=== PATIENT | female | born 1935 | race Caucasian/White ===

== ENCOUNTER 2016-11-26 08:25 | Outpatient (CLI) | payer MEDICARE ==
[2016-11-26 12:29] LABS: #Basophils 0.1 thou/uL (0.0-0.2); #Lymphocytes 2.2 thou/uL (1.20-3.40); #Monocytes 0.3 thou/uL (0.11-0.59); #Neutrophils 2.2 thou/uL (1.40-6.50); %Basophils 1.4 % (0.0-1.0); %Eosinophils 0.8 % (0.0-10.0); %Lymphocytes 46.4 % (21.0-51.0); %Monocytes 6.5 % (0.0-10.0); Hemoglobin 13.2 g/dL (12.0-16.0); Mean Corpuscular HGB CONC 32.3 g/dL (32.0-36.0); Mean Corpuscular Hemoglobin 29.8 pg (27.0-31.0); Mean Corpuscular Volume 92.2 fl (81.0-99.0); Mean Platelet Volume 7.4 fL (7.4-10.4); Platelet Count 194 thou/uL (130-400); RBC Distribution Width 11.4 % (11.5-14.5); Red Blood Cell (RBC) Count 4.43 mill/uL (4.20-5.40); White Blood Cell (WBC) Count 4.8 thou/uL (4.8-10.8)
[2016-11-26 13:01] LABS: ALT (SGPT) 16 U/L (8-55); AST (SGOT) 18 U/L (5-34); Albumin 4.4 g/dL (3.4-4.8); Alkaline Phosphatase 72 U/L (40-150); Anion Gap 16 mmol/L (10-20); BUN (Urea Nitrogen) 18 mg/dL (9.8-20.1); Bilirubin, Direct 0.1 mg/dL (0.1-0.3); Bilirubin, Total 0.3 mg/dL (0.2-1.2); Calc. Creatinine Clearance 0 mL/min (70-130); Calcium 9.8 mg/dL (7.8-10.44); Carbon Dioxide 24 mmol/L (23-31); Cardiac Risk 3.3 (Less than 4.5); Chloride 104 mmol/L (98-107); Cholesterol 223 mg/dl (< 200 Desired); Estimated GFR-MDRD 68; Glucose 81 mg/dL (83-110); HDL Cholesterol 68 mg/dL (>60 Neg Risk); LDL Cholesterol, Calculated 134 mg/dL; Protein, Total 7.4 g/dL (6.0-8.3); Sodium 139 mmol/L (136-145); Triglycerides 104 mg/dL (Less than 150)
[2016-11-26 13:20] LABS: Hemoglobin A1c 5.7 % (4.0-6.0)
== END 2016-11-26 08:26 | disposition home or self-care (01) ==
LOC: NAVSJIPCSP 08:25
PROVIDERS: ATTEND Family Medicine
DX: E78.00 Pure hypercholesterolemia, unspecified (principal); E55.9 Vitamin D deficiency, unspecified; G62.9 Polyneuropathy, unspecified; I10 Essential (primary) hypertension; R51 Headache
CPT/HCPCS: 36415; 80048; 80061; 80076; 83036; 84443; 85025

== ENCOUNTER 2018-06-04 14:44 | Outpatient (CLI) | payer MEDICARE ==
--- NOTE | 2018-06-04 15:48 | CT ---
CT CERVICAL SPINE WITHOUT CONTRAST: Multiple axial tomograms are obtained through the cervical spine without IV enhancement. INDICATION: Neck pain. Cervical radiculopathy. FINDINGS: Degenerative changes of the cervical spine. The cervical vertebral maintain height. There are degen erative disk changes throughout, most prominent at C4-5, C5-6 and C67 where there is loss of disk spa ce with posterior spondylosis and anterior osteophytes. There is anterolisthesis at C3-4 measured at approximately 3 mm. At C2-3, no significant disk bulge or spondylosis. At C3-4, anterolisthesis as noted above. Posterior disk bulge and spondylosis efface the anterior pickard barachnoid space. Mild left foraminal narrowing due to facet and uncinate hypertrophy. At C4-5, posterior disk bulge and spondylosis efface the anterior subarachnoid space and appear to ab ut the spinal cord. There is left foraminal encroachment due to uncinate hypertrophy. At C5-6, posterior disk bugle and spondylosis efface the anterior subarachnoid space and impinge on a mildly flattened cord. Left foraminal narrowing due to facet and uncinate hypertrophy. At C6-7, posterior disk bulge with spondylosis efface the anterior subarachnoid space and abut the co rd. Mild left foraminal encroachment due to uncinate hypertrophy. IMPRESSION: Degenerative disk changes throughout the cervical spine most prominent at C3-4, C4-5, C5-6, and C6-7 with findings described above. POS: [facility]
== END 2018-06-04 14:45 | disposition home or self-care (01) ==
LOC: NAV CT 14:44
PROVIDERS: ATTEND Neurological Surgery
DX: M50.11 Cervical disc disorder with radiculopathy, high cervical region (principal)
CPT/HCPCS: 72125